=== PATIENT | female | born 1980 | race Hispanic/Latino ===

== ENCOUNTER 2023-04-01 19:49 | Emergency (ER) | payer SELFPAY | END 2023-04-01 21:48 | disposition left against medical advice (07) | LOC: CSHERS 19:49 | DX: Z53.21 Procedure and treatment not carried out due to patient leaving prior to being seen by health care provider (principal) ==

== ENCOUNTER 2025-02-24 13:10 | Outpatient (CLI) | payer MEDICAID | END 2025-02-24 13:11 | disposition home or self-care (01) | LOC: CSHULT 13:10 | PROVIDERS: ATTEND Internal Medicine | DX: C50.411 Malignant neoplasm of upper-outer quadrant of right female breast (principal); C79.51 Secondary malignant neoplasm of bone; R94.5 Abnormal results of liver function studies; I51.9 Heart disease, unspecified | CPT/HCPCS: 93306 ==

== ENCOUNTER 2025-03-29 06:15 | Day surgery (SDC) | payer MEDICAID ==
[2025-03-28 11:41] VITALS: BMI 21.0
[2025-03-29] MEDS ORDERED: Bupivacaine HCl 0.5%/Epinephrine 1:200,000/PF 30 ml Vial ONE (06:33)
[2025-03-29] MEDS ORDERED: CEFAZOLIN 2 GM VIAL ONE (06:48)
[2025-03-29 06:56] LABS: #Basophils 0.07 10x3/uL (0.0-0.2); #Eosinophils 0.03 10x3/uL (0.0-0.5); #Monocytes 0.78 10x3/uL (0.0-1.1); #Neutrophils 5.70 10x3/uL (1.5-8.4); %Basophils 0.9 % (0.0-2.0); %Eosinophils 0.4 % (0.0-6.0); %Lymphocytes 11.7 % (18.0-47.0); %Monocytes 10.3 % (0.0-10.0); %Neutrophils 75.1 % (40.0-75.0); Hematocrit 33.1 % (34.9-44.5); Hemoglobin 11.2 g/dL (12.0-15.5); Mean Corpuscular Hemoglobin 34.6 pg (27.0-33.0); Mean Corpuscular Volume 102.2 fL (81.6-98.3); Platelet Count 394 10x3/uL (150-450); Red Blood Cell (RBC) Count 3.24 10x6/uL (3.90-5.03); White Blood Cell (WBC) Count 7.59 10x3/uL (3.5-10.5)
[2025-03-29] MEDS ORDERED: PROPOFOL 20 ML ONE (07:06)
[2025-03-29] MEDS ORDERED: Lidocaine 1% PF 5 ML VIAL ONE (07:07)
[2025-03-29] MEDS ORDERED: Ondansetron PF 4 MG/2 ML Vial ONE (07:07)
[2025-03-29 07:17] LABS: Anion Gap 16 mmol/L (10-20); BUN (Urea Nitrogen) 5 mg/dL (7.0-18.7); Calc. Creatinine Clearance 110 mL/min (70-130); Calcium 9.1 mg/dL (7.8-10.44); Carbon Dioxide 20 mmol/L (22-29); Chloride 100 mmol/L (98-107); Glucose 107 mg/dL (70-105); Sodium 133 mmol/L (136-145)
[2025-03-29 07:32] LABS: Potassium 2.6 mmol/L (3.5-5.1)
[2025-03-29] MEDS ORDERED: Bupivacaine/Epinephrine 0.25% 30 ML VIAL ONE (07:33)
== END 2025-03-29 10:05 | disposition home or self-care (01) ==
LOC: CSHSDC 06:15
PROVIDERS: ATTEND Surgery
PROC: 05HM33Z Insertion of Infusion Device into Right Internal Jugular Vein, Percutaneous Approach (ICD-10-PCS; principal; 2025-03-29)
DX: C50.911 Malignant neoplasm of unspecified site of right female breast (principal); C79.51 Secondary malignant neoplasm of bone
CPT/HCPCS: 71045; 80048; 85025; A6258; C1788; J1100; J1642; J2405; J2704; J3010